=== PATIENT | female | born 1980 | race Hispanic/Latino ===

== ENCOUNTER 2023-03-15 12:21 | Outpatient (CLI) | payer BC ==
[2023-03-15] MEDS ORDERED: GASTROGRAFIN 30 ML BOT ONE (13:47)
[2023-03-15] MEDS ORDERED: Iopamidol 370 76% 100 ML VIAL ONE (13:47)
== END 2023-03-15 12:22 | disposition home or self-care (01) ==
LOC: CT 12:21
PROVIDERS: ATTEND Family Medicine
DX: K62.5 Hemorrhage of anus and rectum (principal); R10.84 Generalized abdominal pain; R19.7 Diarrhea, unspecified; K52.9 Noninfective gastroenteritis and colitis, unspecified
CPT/HCPCS: 74177